=== PATIENT | male | born 1970 | race Caucasian/White ===

== ENCOUNTER → 2016-08-28 | Outpatient (CLI) | payer BC, OTHER ==
--- NOTE | 2016-08-31 05:40 | SLEEPCENT ---
DATE OF PROCEDURE: 08/28/2016 ORDERED BY: LUKAS Lr Nocturnal polysomnography was performed for re-titration of pressure therapy in this patient with obstructive sleep apnea syndrome currently using a pressure of +9 with an abnormal nocturnal oximetry trace. For testing, a ResMed Quattro full face mask of medium size was used. 9 cm of water pressure were applied to the circuit and the lights were extinguished. 8 hours and 13 minutes of data were reviewed. There were 356 minutes of sleep identified. Sleep latency was prolonged at 32 minutes. Rapid eye movement (REM) latency was prolonged at 86 minutes. Sleep architecture was fair with a period of wake around 2 a.m. There were 4 REM periods appreciated. Overall sleep efficiency was 73.8%. The patient's EKG showed an underlying sinus rhythm with some unifocal ventricular ectopic beats noted. Average heart rate 50 beats per minute. EEG showed reasonably normal waveforms for awake and sleep. Best CPAP pressure for suppression of respiratory events was found to be 13 cm. Persistent limb activity was appreciated. There were at least 3 trains of 30 events and limb movement arousal index was 14.8. IMPRESSION: 1. Obstructive sleep apnea syndrome (G47.33). 2. Periodic limb movement disorder (G47.61). Limb movement arousal index 14.8. RECOMMENDATION: Nightly use of pressure therapy at 13 cm of water should be sufficient to address the patient's respiratory events. Interventions to reduce the frequency arousal from limb activity should improve the quality of the patient's sleep.
== END ==
LOC: M SLEEP 19:45
PROVIDERS: ATTEND Nurse Practitioner Adult Health
DX: G47.33 Obstructive sleep apnea (adult) (pediatric) (principal)

== ENCOUNTER → 2017-03-03 | Outpatient (REF) | payer OTHER ==
[2017-03-03 12:17] LABS: ALBUMIN 4.1 GM/DL (3.2-5.2); ALBUMIN/GLOBULIN RATIO 1.32 (1.00-1.93); ALKALINE PHOSPHATASE 63 U/L (45-117); ALT/SGPT 59 U/L (12-78); ANION GAP 6 MEQ/L (8-16); AST/SGOT 117 U/L (15-37); BILIRUBIN,TOTAL 0.4 MG/DL (0.2-1.0); BLOOD UREA NITROGEN 24 MG/DL (7-18); CALCIUM LEVEL 8.8 MG/DL (8.5-10.1); CARBON DIOXIDE LEVEL 26 MEQ/L (21-32); CHLORIDE LEVEL 112 MEQ/L (98-107); CHOLESTEROL LEVEL 305 MG/DL (<200); CREATININE FOR GFR 1.69 MG/DL (0.70-1.30); GLOMERULAR FILTRATION RATE 46.3 (>60); GLUCOSE, FASTING 92 MG/DL (70-105); POTASSIUM SERUM 4.3 MEQ/L (3.5-5.1); SODIUM LEVEL 144 MEQ/L (136-145); TOTAL PROTEIN 7.2 GM/DL (6.4-8.2); TRIGLYCERIDES LEVEL 481 MG/DL (<150)
== END ==
LOC: M SFHCCLAY 06:37
PROVIDERS: ATTEND Nurse Practitioner
DX: I10 Essential (primary) hypertension (principal); E03.9 Hypothyroidism, unspecified

== ENCOUNTER → 2017-05-16 | Outpatient (REF) | payer OTHER ==
[2017-05-16 12:54] LABS: FREE T4 1.38 NG/DL (0.76-1.46)
== END ==
LOC: M SFHCCLAY 08:32
PROVIDERS: ATTEND Nurse Practitioner
DX: E78.5 Hyperlipidemia, unspecified (principal); R53.83 Other fatigue

== ENCOUNTER → 2018-08-14 | Outpatient (REF) | payer OTHER ==
[2018-08-14 12:36] LABS: ALT/SGPT 31 U/L (12-78); BILIRUBIN,TOTAL 0.6 MG/DL (0.2-1.0); BLOOD UREA NITROGEN 17 MG/DL (7-18); CALCIUM LEVEL 8.9 MG/DL (8.5-10.1); CARBON DIOXIDE LEVEL 25 MEQ/L (21-32); CHLORIDE LEVEL 106 MEQ/L (98-107); CHOLESTEROL LEVEL 166 MG/DL (<200); CREATININE FOR GFR 1.27 MG/DL (0.70-1.30); GLOMERULAR FILTRATION RATE > 60.0 (>60); GLUCOSE, FASTING 85 MG/DL (70-100); HDL CHOLESTEROL 25 MG/DL (>40); LDL CHOLESTEROL 83 MG/DL (<100); NON-HDL-C 141 MG/DL; POTASSIUM SERUM 4.8 MEQ/L (3.5-5.1); SODIUM LEVEL 139 MEQ/L (136-145); THYROID STIMULATING HORMONE 0.744 uIU/ML (0.358-3.740); TRIGLYCERIDES LEVEL 292 MG/DL (<150)
== END ==
LOC: M SFHCCLAY 09:27
PROVIDERS: ATTEND Family Medicine
DX: E78.5 Hyperlipidemia, unspecified (principal); E03.9 Hypothyroidism, unspecified

== ENCOUNTER → 2019-01-23 | Outpatient (REF) | payer OTHER ==
[2019-01-23 17:21] LABS: FREE T4 1.35 NG/DL (0.76-1.46); THYROID STIMULATING HORMONE 1.86 uIU/ML (0.358-3.740)
== END ==
LOC: M SFHCCLAY 10:24
PROVIDERS: ATTEND Family Medicine
DX: E03.9 Hypothyroidism, unspecified (principal)

== ENCOUNTER → 2020-08-29 | Outpatient (REF) | payer OTHER ==
[2020-08-29 11:19] LABS: BASO # 0.1 10^3/uL (0.0-0.2); BASO % 0.9 % (0.0-1.0); EOS # 0.2 10^3/uL (0.0-0.5); EOS % 2.4 % (0.0-3.0); HEMATOCRIT 48.1 % (42.0-52.0); HEMOGLOBIN 15.8 g/dl (13.5-17.5); LYMPH # 1.8 10^3/uL (1.5-5.0); LYMPH % 23.9 % (24.0-44.0); MEAN CORPUSCULAR HEMOGLOBIN 31.9 pg (27.0-33.0); MEAN CORPUSCULAR HGB CONC 32.8 g/dl (32.0-36.5); MONO # 0.8 10^3/uL (0.0-0.8); MONO % 10.2 % (0.0-5.0); NEUTROPHILS # 4.8 10^3/uL (1.5-8.5); NEUTROPHILS % 62.2 % (36.0-66.0); PLATELET COUNT, AUTOMATED 297 10^3/uL (150-450); RED BLOOD COUNT 4.96 10^6/uL (4.30-6.10); WHITE BLOOD COUNT 7.6 10^3/uL (4.0-10.0)
[2020-08-29 12:36] LABS: ALBUMIN 4.3 GM/DL (3.2-5.2); ALT/SGPT 58 U/L (12-78); BILIRUBIN,TOTAL 0.4 MG/DL (0.2-1.0); BLOOD UREA NITROGEN 23 MG/DL (7-18); CALCIUM LEVEL 9.1 MG/DL (8.5-10.1); CARBON DIOXIDE LEVEL 27 MEQ/L (21-32); CHLORIDE LEVEL 107 MEQ/L (98-107); CHOLESTEROL LEVEL 208 MG/DL (<200); CHOLESTEROL RISK RATIO 6.933 (<5); CREATININE FOR GFR 1.63 MG/DL (0.70-1.30); FREE T4 1.27 NG/DL (0.76-1.46); GLOMERULAR FILTRATION RATE 47.5 (>56); GLUCOSE, FASTING 99 MG/DL (70-100); HDL CHOLESTEROL 30 MG/DL (>40); NON-HDL-C 178 MG/DL; POTASSIUM SERUM 4.7 MEQ/L (3.5-5.1); SODIUM LEVEL 140 MEQ/L (136-145); TOTAL 25(OH) VITAMIN D 14.9 NG/ML (30.0-100.0); TOTAL PROTEIN 7.3 GM/DL (6.4-8.2); TRIGLYCERIDES LEVEL 459 MG/DL (<150)
[2020-08-29 12:43] LABS: HEMOGLOBIN A1c 5.8 %
== END ==
LOC: M SFHCCLAY 09:03
PROVIDERS: ATTEND Physician Assistant
DX: E78.5 Hyperlipidemia, unspecified (principal); E03.9 Hypothyroidism, unspecified; E66.01 Morbid (severe) obesity due to excess calories

== ENCOUNTER → 2020-09-08 | Outpatient (CLI) | payer BC, OTHER ==
--- NOTE | 2020-09-09 05:39 | REP ---
INDICATION: PAIN IN RT KNEE COMPARISON: None. TECHNIQUE: AP, lateral, bilateral oblique and sunrise views. FINDINGS: Generalized age-related changes are appreciated including subtle cortical irregularity to the femoral condyles and very minimal increased sclerosis along the tibial plateau. [place] and lateral view also demonstrates small osteophytes forming along the inferior and medial margin of the patella. The osseous structures and joint spaces are intact and there is no evidence for acute fracture or dislocation. No joint effusion is appreciated. Surrounding soft tissues are unremarkable. No subcutaneous emphysema or radiodense foreign body. IMPRESSION: Mild age related arthritic changes. <Electronically signed by Linden Pepe > 09/09/20 [id number]
== END ==
LOC: M CLY 15:12
PROVIDERS: ATTEND Physician Assistant
DX: M25.561 Pain in right knee (principal)

== ENCOUNTER → 2020-11-17 | Outpatient (REF) | payer OTHER ==
[2020-11-17 17:40] LABS: ALBUMIN 4.1 GM/DL (3.2-5.2); ALT/SGPT 43 U/L (12-78); BILIRUBIN,TOTAL 0.3 MG/DL (0.2-1.0); BLOOD UREA NITROGEN 18 MG/DL (7-18); CALCIUM LEVEL 9.5 MG/DL (8.5-10.1); CARBON DIOXIDE LEVEL 27 MEQ/L (21-32); CHLORIDE LEVEL 109 MEQ/L (98-107); CHOLESTEROL LEVEL 218 MG/DL (<200); CHOLESTEROL RISK RATIO 7.266 (<5); CREATININE FOR GFR 1.29 MG/DL (0.70-1.30); FREE T4 1.37 NG/DL (0.76-1.46); GLOMERULAR FILTRATION RATE > 60.0 (>56); GLUCOSE, FASTING 93 MG/DL (70-100); HDL CHOLESTEROL 30 MG/DL (>40); NON-HDL-C 188 MG/DL; POTASSIUM SERUM 5.3 MEQ/L (3.5-5.1); SODIUM LEVEL 142 MEQ/L (136-145); TOTAL 25(OH) VITAMIN D 23.2 NG/ML (30.0-100.0); TOTAL PROTEIN 7.2 GM/DL (6.4-8.2); TRIGLYCERIDES LEVEL 535 MG/DL (<150)
[2020-11-17 18:20] LABS: HEMOGLOBIN A1c 5.6 %
== END ==
LOC: M SFHCCLAY 10:49
PROVIDERS: ATTEND Physician Assistant
DX: R73.09 Other abnormal glucose (principal); E03.9 Hypothyroidism, unspecified; E55.9 Vitamin D deficiency, unspecified

== ENCOUNTER → 2022-04-20 | Outpatient (REF) | payer OTHER ==
[2022-04-20 11:46] LABS: BASO # 0.1 10^3/uL (0.0-0.2); BASO % 1.1 % (0.0-1.0); EOS # 0.2 10^3/uL (0.0-0.5); EOS % 2.6 % (0.0-3.0); HEMATOCRIT 46.1 % (42.0-52.0); HEMOGLOBIN 15.2 g/dl (13.5-17.5); LYMPH # 1.8 10^3/uL (1.5-5.0); MEAN CORPUSCULAR HEMOGLOBIN 32.4 pg (27.0-33.0); MEAN CORPUSCULAR VOLUME 98.3 fl (80.0-96.0); MONO # 0.7 10^3/uL (0.0-0.8); MONO % 9.7 % (2.0-8.0); NEUTROPHILS # 4.5 10^3/uL (1.5-8.5); NEUTROPHILS % 61.2 % (36.0-66.0); PLATELET COUNT, AUTOMATED 274 10^3/uL (150-450); RED BLOOD COUNT 4.69 10^6/uL (4.30-6.10); WHITE BLOOD COUNT 7.3 10^3/uL (4.0-10.0)
[2022-04-20 12:16] LABS: HEMOGLOBIN A1c 6.1 %
[2022-04-20 12:39] LABS: ALBUMIN 3.8 GM/DL (3.2-5.2); ALT/SGPT 43 U/L (12-78); BILIRUBIN,TOTAL 0.3 MG/DL (0.2-1.0); BLOOD UREA NITROGEN 18 MG/DL (7-18); CALCIUM LEVEL 9.2 MG/DL (8.5-10.1); CARBON DIOXIDE LEVEL 27 MEQ/L (21-32); CHLORIDE LEVEL 109 MEQ/L (98-107); CHOLESTEROL LEVEL 231 MG/DL (<200); CHOLESTEROL RISK RATIO 8.884 (<5); CREATININE FOR GFR 1.36 MG/DL (0.70-1.30); GLOMERULAR FILTRATION RATE 58.4 (>56); GLUCOSE, FASTING 103 MG/DL (70-100); HDL CHOLESTEROL 26 MG/DL (>40); NON-HDL-C 205 MG/DL; POTASSIUM SERUM 4.5 MEQ/L (3.5-5.1); SODIUM LEVEL 140 MEQ/L (136-145); TOTAL PROTEIN 6.7 GM/DL (6.4-8.2); TRIGLYCERIDES LEVEL 723 MG/DL (<150)
[2022-04-20 12:44] LABS: TOTAL 25(OH) VITAMIN D 15.1 NG/ML (30.0-100.0)
== END ==
LOC: M SFHCCLAY 08:38
PROVIDERS: ATTEND Physician Assistant
DX: Z00.00 Encounter for general adult medical examination without abnormal findings (principal)
CPT/HCPCS: 80053; 80061; 82306; 83036; 84443; 85025; G0103

== ENCOUNTER → 2023-06-22 | Outpatient (REF) | payer OTHER ==
[~2023-06-22] MED LIST: ATOR80TA59; ERGO500029; LEVO125T4
[2023-06-22 13:11] LABS: BASO # 0.1 10^3/uL (0.0-0.2); BASO % 1.5 % (0.0-1.0); EOS # 0.2 10^3/uL (0.0-0.5); EOS % 3.5 % (0.0-3.0); HEMATOCRIT 48.7 % (42.0-52.0); HEMOGLOBIN 16.4 g/dl (13.5-17.5); LYMPH # 1.5 10^3/uL (1.5-5.0); LYMPH % 23.5 % (24.0-44.0); MEAN CORPUSCULAR HEMOGLOBIN 31.8 pg (27.0-33.0); MEAN CORPUSCULAR HGB CONC 33.7 g/dl (32.0-36.5); MEAN CORPUSCULAR VOLUME 94.6 fl (80.0-96.0); MONO # 0.5 10^3/uL (0.0-0.8); MONO % 7.8 % (2.0-8.0); NEUTROPHILS # 4.1 10^3/uL (1.5-8.5); NEUTROPHILS % 63.2 % (36.0-66.0); PLATELET COUNT, AUTOMATED 260 10^3/uL (150-450); RED BLOOD COUNT 5.15 10^6/uL (4.30-6.10); WHITE BLOOD COUNT 6.5 10^3/uL (4.0-10.0)
[2023-06-22 13:19] LABS: HEMOGLOBIN A1c 5.8 % (4.0-6.0)
[2023-06-22 13:40] LABS: ALBUMIN 4.3 G/DL (3.2-5.2); ALKALINE PHOSPHATASE 72 U/L (46-116); ALT/SGPT 61 U/L (7.0-40); AST/SGOT 119 U/L (<34); BILIRUBIN,TOTAL 0.6 MG/DL (0.3-1.2); BLOOD UREA NITROGEN 18 MG/DL (9-23); CALCIUM LEVEL 9.5 MG/DL (8.5-10.1); CARBON DIOXIDE LEVEL 28 MMOL/L (20-31); CHLORIDE LEVEL 104 MMOL/L (98-107); CHOLESTEROL LEVEL 326 MG/DL (<200); CHOLESTEROL RISK RATIO 8.27 (<5); CREATININE FOR GFR 1.63 MG/DL (0.70-1.30); FREE T4 0.23 NG/DL (0.89-1.76); GLOMERULAR FILTRATION RATE 47.2 (>56); GLUCOSE, FASTING 74 MG/DL (60-100); HDL CHOLESTEROL 39.4 MG/DL (>40); NON-HDL-C 286.6 MG/DL; POTASSIUM SERUM 4.8 MMOL/L (3.5-5.1); SODIUM LEVEL 137 MMOL/L (136-145); TOTAL 25(OH) VITAMIN D 20.2 NG/ML (20.0-100.0); TOTAL PROTEIN 7.2 G/DL (5.7-8.2); TRIGLYCERIDES LEVEL 479 MG/DL (<150)
[2023-06-22 13:45] LABS: THYROID STIMULATING HORMONE > 150.000 uIU/ML (0.55-4.78)
== END ==
LOC: M SFHCCLAY 09:42
PROVIDERS: ATTEND Physician Assistant Medical
DX: E03.9 Hypothyroidism, unspecified (principal); E78.5 Hyperlipidemia, unspecified; R73.09 Other abnormal glucose; G47.30 Sleep apnea, unspecified

== ENCOUNTER → 2023-09-02 | Outpatient (REF) | payer OTHER ==
[2023-09-02 18:53] LABS: FERRITIN 287.6 NG/ML (10.5-307.3); THYROID STIMULATING HORMONE 0.096 uIU/ML (0.55-4.78)
[2023-09-02 18:54] LABS: ALBUMIN 3.7 G/DL (3.2-5.2); ALKALINE PHOSPHATASE 70 U/L (46-116); ALT/SGPT 33 U/L (7.0-40); AST/SGOT 19 U/L (<34); BILIRUBIN,TOTAL 0.4 MG/DL (0.3-1.2); BLOOD UREA NITROGEN 15 MG/DL (9-23); CALCIUM LEVEL 9.5 MG/DL (8.5-10.1); CARBON DIOXIDE LEVEL 30 MMOL/L (20-31); CHLORIDE LEVEL 108 MMOL/L (98-107); CREATININE FOR GFR 1.31 MG/DL (0.70-1.30); FREE T4 1.66 NG/DL (0.89-1.76); GLOMERULAR FILTRATION RATE > 60.0 (>56); GLUCOSE, FASTING 86 MG/DL (60-100); POTASSIUM SERUM 5.4 MMOL/L (3.5-5.1); SODIUM LEVEL 142 MMOL/L (136-145); TOTAL PROTEIN 6.3 G/DL (5.7-8.2)
[2023-09-02 18:55] LABS: TESTOSTERONE 174 NG/DL (241-827)
[2023-09-02 19:25] LABS: HEPATITIS C VIRUS ABY INDEX < 0.02 INDEX (<0.8)
== END ==
LOC: M SFHCCLAY 11:01
PROVIDERS: ATTEND Physician Assistant Medical
DX: E03.9 Hypothyroidism, unspecified (principal); R79.89 Other specified abnormal findings of blood chemistry; R74.8 Abnormal levels of other serum enzymes; R68.82 Decreased libido

== ENCOUNTER → 2023-10-19 | Outpatient (REF) | payer OTHER ==
[2023-10-19 18:29] LABS: FREE T4 1.39 NG/DL (0.89-1.76); THYROID STIMULATING HORMONE 0.131 uIU/ML (0.55-4.78)
[2023-10-19 18:30] LABS: ALBUMIN 3.7 G/DL (3.2-5.2); ALKALINE PHOSPHATASE 85 U/L (46-116); ALT/SGPT 32 U/L (7.0-40); AST/SGOT 19 U/L (<34); BILIRUBIN,TOTAL 0.3 MG/DL (0.3-1.2); BLOOD UREA NITROGEN 20 MG/DL (9-23); CALCIUM LEVEL 8.9 MG/DL (8.5-10.1); CARBON DIOXIDE LEVEL 26 MMOL/L (20-31); CHLORIDE LEVEL 111 MMOL/L (98-107); CREATININE FOR GFR 1.19 MG/DL (0.70-1.30); GLOMERULAR FILTRATION RATE > 60.0 (>56); GLUCOSE, FASTING 90 MG/DL (60-100); MAGNESIUM LEVEL 1.8 MG/DL (1.8-2.4); POTASSIUM SERUM 4.6 MMOL/L (3.5-5.1); SODIUM LEVEL 141 MMOL/L (136-145); TOTAL PROTEIN 6.6 G/DL (5.7-8.2)
== END ==
LOC: M SFHCCLAY 12:31
PROVIDERS: ATTEND Physician Assistant Medical
DX: E03.9 Hypothyroidism, unspecified (principal); E87.5 Hyperkalemia; R79.89 Other specified abnormal findings of blood chemistry

== ENCOUNTER → 2024-01-30 | Outpatient (REF) | payer BC ==
[2024-01-30 17:54] LABS: BASO # 0.1 10^3/uL (0.0-0.2); BASO % 0.9 % (0.0-1.0); EOS # 0.1 10^3/uL (0.0-0.5); EOS % 1.9 % (0.0-3.0); HEMATOCRIT 48.5 % (42.0-52.0); HEMOGLOBIN 16.2 g/dl (13.5-17.5); LYMPH # 1.5 10^3/uL (1.5-5.0); LYMPH % 22.6 % (24.0-44.0); MEAN CORPUSCULAR HEMOGLOBIN 30.2 pg (27.0-33.0); MEAN CORPUSCULAR HGB CONC 33.4 g/dl (32.0-36.5); MEAN CORPUSCULAR VOLUME 90.5 fl (80.0-96.0); MONO # 0.6 10^3/uL (0.0-0.8); MONO % 8.8 % (2.0-8.0); NEUTROPHILS # 4.4 10^3/uL (1.5-8.5); NEUTROPHILS % 65.5 % (36.0-66.0); PLATELET COUNT, AUTOMATED 321 10^3/uL (150-450); RED BLOOD COUNT 5.36 10^6/uL (4.30-6.10); WHITE BLOOD COUNT 6.7 10^3/uL (4.0-10.0)
[2024-01-30 18:21] LABS: HEMOGLOBIN A1c 5.6 % (4.0-6.0)
[2024-01-30 18:22] LABS: ALKALINE PHOSPHATASE 95 U/L (46-116); ALT/SGPT 37 U/L (7.0-40); AST/SGOT 20 U/L (<34); BILIRUBIN,TOTAL 0.5 MG/DL (0.3-1.2); BLOOD UREA NITROGEN 18 MG/DL (9-23); CALCIUM LEVEL 9.3 MG/DL (8.5-10.1); CARBON DIOXIDE LEVEL 27 MMOL/L (20-31); CHLORIDE LEVEL 108 MMOL/L (98-107); CHOLESTEROL LEVEL 141 MG/DL (<200); CHOLESTEROL RISK RATIO 5.61 (<5); CREATININE FOR GFR 1.26 MG/DL (0.70-1.30); FREE T4 1.49 NG/DL (0.89-1.76); GLOMERULAR FILTRATION RATE > 60.0 (>56); GLUCOSE, FASTING 92 MG/DL (60-100); HDL CHOLESTEROL 25.1 MG/DL (>40); LDL CHOLESTEROL 65.9 MG/DL (<100); NON-HDL-C 115.9 MG/DL; POTASSIUM SERUM 5.1 MMOL/L (3.5-5.1); PSA SCREENING 0.48 NG/ML (< 4.00); SODIUM LEVEL 138 MMOL/L (136-145); THYROID STIMULATING HORMONE 0.159 uIU/ML (0.55-4.78); TOTAL PROTEIN 6.5 G/DL (5.7-8.2); TRIGLYCERIDES LEVEL 250 MG/DL (<150)
== END ==
LOC: M SFHCCLAY 10:42
PROVIDERS: ATTEND Physician Assistant Medical
DX: R73.01 Impaired fasting glucose (principal); E78.5 Hyperlipidemia, unspecified; Z12.5 Encounter for screening for malignant neoplasm of prostate; I10 Essential (primary) hypertension; E03.9 Hypothyroidism, unspecified
CPT/HCPCS: 80053; 80061; 83036; 84439; 84443; 85025; G0103

== ENCOUNTER → 2024-04-03 | Outpatient (REF) | payer BC ==
[2024-04-03 17:28] LABS: HEMATOCRIT 53.2 % (42.0-52.0); HEMOGLOBIN 17.8 g/dl (13.5-17.5); MEAN CORPUSCULAR HEMOGLOBIN 30.2 pg (27.0-33.0); MEAN CORPUSCULAR HGB CONC 33.5 g/dl (32.0-36.5); MEAN CORPUSCULAR VOLUME 90.2 fl (80.0-96.0); PLATELET COUNT, AUTOMATED 291 10^3/uL (150-450)
[2024-04-03 17:41] LABS: ESTRADIOL < 19.0 PG/ML (<39.8); FOLLICLE STIMULATING HORMONE 4.9 mIU/ML (1.4-18.1); LUTEINIZING HORMONE 2.4 mIU/ML (1.5-9.3); TESTOSTERONE 108 NG/DL (241-827)
== END ==
LOC: M SFHCCLAY 11:01
PROVIDERS: ATTEND Nurse Practitioner Family
DX: R79.89 Other specified abnormal findings of blood chemistry (principal)

== ENCOUNTER → 2024-07-19 | Outpatient (REF) | payer BC ==
[2024-07-19 11:50] LABS: BASO # 0.1 10^3/uL (0.0-0.2); BASO % 0.8 % (0.0-1.0); EOS # 0.1 10^3/uL (0.0-0.5); EOS % 1.5 % (0.0-3.0); HEMATOCRIT 53.8 % (42.0-52.0); LYMPH # 1.6 10^3/uL (1.5-5.0); LYMPH % 20.8 % (24.0-44.0); MEAN CORPUSCULAR HEMOGLOBIN 30.3 pg (27.0-33.0); MEAN CORPUSCULAR HGB CONC 33.5 g/dl (32.0-36.5); MEAN CORPUSCULAR VOLUME 90.4 fl (80.0-96.0); MONO # 0.7 10^3/uL (0.0-0.8); MONO % 9.7 % (2.0-8.0); NEUTROPHILS % 66.8 % (36.0-66.0); PLATELET COUNT, AUTOMATED 263 10^3/uL (150-450); RED BLOOD COUNT 5.95 10^6/uL (4.30-6.10); WHITE BLOOD COUNT 7.4 10^3/uL (4.0-10.0)
[2024-07-19 11:54] LABS: HEMATOCRIT 54.4 % (42.0-52.0); HEMOGLOBIN 18.2 g/dl (13.5-17.5); MEAN CORPUSCULAR HEMOGLOBIN 30.4 pg (27.0-33.0); MEAN CORPUSCULAR HGB CONC 33.5 g/dl (32.0-36.5); MEAN CORPUSCULAR VOLUME 90.8 fl (80.0-96.0); PLATELET COUNT, AUTOMATED 268 10^3/uL (150-450); RED BLOOD COUNT 5.99 10^6/uL (4.30-6.10); WHITE BLOOD COUNT 7.3 10^3/uL (4.0-10.0)
[2024-07-19 12:14] LABS: ALBUMIN 3.7 G/DL (3.2-5.2); ALKALINE PHOSPHATASE 90 U/L (40-129); ALT/SGPT 29 U/L (7.0-40); AST/SGOT 27 U/L (<34); BILIRUBIN,TOTAL 0.7 MG/DL (0.3-1.2); BLOOD UREA NITROGEN 17 MG/DL (9-23); CALCIUM LEVEL 9.6 MG/DL (8.5-10.1); CARBON DIOXIDE LEVEL 27 MMOL/L (20-31); CHLORIDE LEVEL 106 MMOL/L (98-107); CHOLESTEROL LEVEL 157 MG/DL (<200); CHOLESTEROL RISK RATIO 6.54 (<5); CREATININE FOR GFR 1.23 MG/DL (0.70-1.30); GLOMERULAR FILTRATION RATE > 60.0 (>56); GLUCOSE, FASTING 86 MG/DL (60-100); POTASSIUM SERUM 4.9 MMOL/L (3.5-5.1); SODIUM LEVEL 139 MMOL/L (136-145); TOTAL PROTEIN 6.8 G/DL (5.7-8.2); TRIGLYCERIDES LEVEL 260 MG/DL (<150)
[2024-07-19 12:18] LABS: FREE T4 1.39 NG/DL (0.89-1.76); THYROID STIMULATING HORMONE 0.637 uIU/ML (0.55-4.78); TOTAL 25(OH) VITAMIN D 28.2 NG/ML (20.0-100.0)
== END ==
LOC: M SFHCCLAY 09:19
PROVIDERS: ATTEND Physician Assistant Medical
DX: E03.9 Hypothyroidism, unspecified (principal); R79.89 Other specified abnormal findings of blood chemistry; E55.9 Vitamin D deficiency, unspecified; I10 Essential (primary) hypertension; R74.8 Abnormal levels of other serum enzymes; E78.2 Mixed hyperlipidemia; E29.1 Testicular hypofunction